=== PATIENT | male | born 1975 | race Caucasian/White ===

== ENCOUNTER 2017-01-18 10:27 | Day surgery (SDC) | payer OTHER ==
[2017-01-18] VITALS (16 sets, daily range): BP systolic 102–144; BP diastolic 48–94; PULSE 60–87; RESP 6–19; O2SAT 94–98
[~2017-01-18] VITALS: Ht 185.4 cm; Wt 98.5 kg
--- NOTE | 2017-01-18 07:56 | PCM.HPANE ---
Patient Data Surgeon Admitting Provider: Attending Provider:Errol Pugh MD Primary Care Physician:Kaushal Gomez MD Other Provider:[facility] Reason for Visit Right Recurrent Inguinal Hernia Ht/WT & BMI Height (Feet): 6 Height (Inches): 0 Weight (Kilograms): 98.883 Body Mass Index 29.00 Allergies Coded Allergies: No Known Allergies (Unverified , 01/16/17) Past Anesthesia History Anesthesia History: Denies:: Anesthesia Reactions, Malignant Hyperthermia Diabetes History Hx Diabetes?: No (HX OF IFG) MRSA MRSA: No Medications No Active Prescriptions or Reported Meds History History of ENT Problems?: Yes HEENT History: Denies:: Glaucoma (S/P PRK) Hx of Heart Problems?: No Cardiovascular History: Denies:: Heart Murmur Hypertension Hx of Respiratory Problem?: No Respiratory History: Denies:: Use of C-PAP Machine Hx Neurologic Problems?: No Hx of GI Problems?: Yes Gastrointestinal History: Positive for:: Liver Disease (HX ELEVATED LFT'S) Other GI Pertinent History: S/P RT INGUINAL HERNIA RPR RECURRENT RT INGUINAL HERNIA=CURRENT PROBLEM Hx of Problems?: No Male Hx: Denies:: Prostate Problems Scrotal Mass Testicular Surgery Skin History: Positive for:: History Skin Disorders? (S/P EXC MALIGNANT MELANOMA FROM CALF) Denies:: Pressure Ulcers Hx Musculoskeletal Problems?: Yes Musculoskeletal History: Positive for:: Musculoskeletal Trauma (S/P KNEE ARTHROSCOPY) Hx of Psycho/Social Problems?: No Hx Surgeries?: Yes (EXC MELANOMA,PRK,KNEE SCOPE,RT INGUINAL HERNIA RPR) Hx Any Other Health Problems?: Yes Other History: Positive for:: Cancer (MALIG. MELANOMA -CALF) Denies:: Endocrine Disease Hospitalization Thyroid Disease History Blood Transfusions: Denies:: Blood Transfusions Hx Diabetes: No (HX OF IFG) Hx Alcohol Use: NoHave You Smoked inLast 12 mo: No Stop/Bang S-Snoring: Do You Snore Loudly: No T-Tired: feel tired, fatigued: No O-Obsered: Observed not breath: No P-Blood Pressure: treated: No B- Body Mass Index > 35 kg/m2: No A- Age over 50: No N- Neck Large Circumference: No G- Gender Male: Yes THOMAS Total Score: 1 Risk Assessment Category Category 1A: Patient has history of documented sleep apnea, and HAS NOT received any narcotic, sedative or anesthesia administration during this stay. Category 1B: Patient has history of documented sleep apnea, and HAS received any narcotic , sedative or anesthesia administration during this stay Category 2: Patient has SUSPECTED Obstructive Sleep Apnea, and HAS received any narcotic , sedative or anesthesia administration during this stay. Category 3: Patient has SUSPECTED Obstructive Sleep Apnea and HAS NOT received narcotic, sedative or anesthesia administration during this stay. Category 4: Outpatient in Procedural Areas with known sleep apnea or who screen positive for High Risk via the STOP/BANG questionnaire. Plan Impression Patient chart reviewed, patient interviewed and anesthestic plan with risks, benefits, and alternatives discussed, and informed consent obtained. Tapan Medina MD Jan 18, 2017 07:56
[~2017-01-18 10:27] MED LIST: CeFAZolin Inj 2 GM in IV Premix 1 EACH IV ONE
[2017-01-18] MEDS ORDERED: Propofol 10,000 mCg/mL 20 mL Inj ONE (10:28)
[2017-01-18] MEDS ORDERED: Dexamethasone 4 mg/mL Inj ONE (10:28)
[2017-01-18] MEDS ORDERED: Rocuronium 10 mg/mL 5 mL Inj ONE (10:28)
[2017-01-18] MEDS ORDERED: Ondansetron 2 mg/mL 2 mL Inj ONE (10:28)
[2017-01-18] MEDS ORDERED: Ketamine 10 mg/mL 20 mL Inj ONE (10:28)
[2017-01-18] MEDS ORDERED: fentaNYL-PF 50 mCg/mL 2 mL Inj ONE (10:28)
[2017-01-18] MEDS: Lactated Ringer's 1,000 ML IV SCH ×2 (10:33→12:27)
[2017-01-18] MEDS ORDERED: Bupivacaine 0.5%/EPI 50 mL Inj INFILTRATE ONE (12:54)
[2017-01-18] MEDS ORDERED: fentaNYL-PF 50 mCg/mL 2 mL Inj IVPUSH PRN (13:10)
[2017-01-18] MEDS ORDERED: Lactated Ringer's 500 ML IV PRN (13:10)
[2017-01-18] MEDS ORDERED: Ondansetron 2 mg/mL 2 mL Inj IVPUSH PRN (13:10)
[2017-01-18] MEDS ORDERED: Phenylephrine 10,000 mCg/mL Inj IVPUSH PRN (13:10)
[2017-01-18] MEDS ORDERED: Lactated Ringer's 1,000 ML IV SCH (13:10)
[2017-01-18] MEDS ORDERED: MetoCLOpramide 5 mg/mL 2 mL Inj IVPUSH PRN (13:10)
[2017-01-18] MEDS ORDERED: EPHEDrine Sulfate 50 mg/mL Inj IVPUSH PRN (13:10)
[2017-01-18] MEDS ORDERED: Dexamethasone 4 mg/mL Inj IVPUSH PRN (13:10)
[2017-01-18] MEDS ORDERED: Lactated Ringer's 1,000 ML IV ONE (13:53)
[2017-01-18] MEDS ORDERED: HYDROcodone-APAP 5-325 mg Tablet PO PRN (14:20)
--- NOTE | 2017-01-18 14:23 | PCM.DISURG ---
Surgical Discharge Instruction Date of Service Jan 18, 2017 Dates of Hospitalization Date of Hospital Admission Providers Admitting Physician: Primary Care Physician: Kaushal Gomez MD Attending Physician: Errol Pugh MD Discharge Diagnosis Discharge Diagnosis Recurrent right inguinal hernia Diet Discharge Diet: No restrictions Activity Discharge Activity-General: No lifting >15 pounds for 2 weeks Dressing and Incisional Care Dressing Care: Allow Steri Stripes to fall off, Remove outer dressing after 24 hrs Hygiene: May shower after (24 hours) Follow Up Plan Follow Up Plan With Dr. Pugh in surgery clinic in 2-3 weeks Call your provider for: Fever, Discharge @ incision, pus discharge Errol Pugh MD Jan 18, 2017 14:23
--- NOTE | 2017-01-18 14:29 | PCM.SURGOP ---
Surgical Operative Report Date of Service: Jan 18, 2017 Pre Operative Diagnosis Recurrent right inguinal hernia Post Operative Diagnosis Same, direct Procedure: Laparoscopic repair of recurrent right inguinal hernia with mesh Surgeon and Statistics Manager: Surgeon: Errol Pugh MD Assistants: Rosalia Helms PA-C Indication for Procedure 41-year-old man who underwent a right inguinal hernia repair through an anterior approach at age 16. He believes the repair was performed with mesh. He then presented with 2 months of increasing pain in the right groin and a visible bulge which was reducible. He had an ultrasound which confirmed a reducible fat-containing hernia. After discussion of risks and benefits, he agreed to proceed with a laparoscopic right inguinal hernia repair with mesh. Findings: There was a small direct hernia defect on the right. There was no evidence of left inguinal hernia. Procedure Details After smooth induction of general anesthesia with LMA, he was placed in the supine position with both arms tucked. The abdomen was prepped and draped in wide sterile fashion. A procedural pause was performed according to the SCOAP checklist, and all were found to be in agreement. A curvilinear infraumbilical incision was made. Dissection was carried down with electrocautery through the subcutaneous tissue. The fascia was incised vertically and the peritoneal cavity was entered without difficulty. A 12 mm port was placed and pneumoperitoneum was established. Inspection revealed the recurrent right inguinal hernia, which was a small direct defect. There was visible suture from his prior repair, but no visible mesh. The left groin was intact. 5 mm ports were placed on the right and left side at the level of the umbilicus under visualization. A peritoneal flap was then raised on the right side. Preperitoneal dissection was carried down until the right superior pubic ramus and the pubic symphysis was skeletonized medially. The hernia sac and herniated preperitoneal fat was dissected out of the hernia space, which was a small direct defect. Again, mesh was not visualized. The inguinal ligament was skeletonized lateral to the cord structures. There was no evidence of indirect hernia. A repair was then performed using the large Bard 3-D Max mesh , right side. This was tacked to the pubic symphysis and Angel Luis's ligament with the Optifix device. One tack was placed on the anterior abdominal wall both medial and lateral to the inferior epigastric vessels, but no tacks were placed on the lateral aspect of the spermatic cord. The peritoneal flap was then closed using interrupted 0 silk sutures. Pneumoperitoneum was released after the 5 mm ports were removed under visualization. The fascia of the umbilical port site was closed with an 0 Vicryl suture in a [id number]. The skin incisions were closed using running 4-0 Monocryl subcuticular stitches. Steri-Strips and sterile dressings were applied. At the end of the case all needle and sponge counts were correct 2. The patient was awakened from anesthesia without difficulty, and taken to the recovery room in satisfactory condition, having tolerated the procedure well. Complications There were no periprocedural complications identified. Surgical Specimen Removed: No Specimen sent to Pathology: Not applicable Anesthetic Plan: GA Grafts, Implants: Implants-See Implant Record Output, Estimated Blood Loss: 10 Blood Administration during jameson: No Drains: None Catheters: None copies to: Kaushal Gomez MD, Joshua D MD Jan 18, 2017 14:29
[2017-01-18] MEDS: HYDROmorphone 1 mg/mL Inj IVPUSH PRN ×2 (14:34→15:04)
--- NOTE | 2017-01-18 16:37 | PCM.ANEP1 ---
Post Anesthesia Phase 1 PACU Phase 1 Assessment Date of Service: Jan 18, 2017 Vital Signs Vital Signs Date Time Temp Pulse Resp B/P Pulse Ox O2 Delivery O2 Flow Rate FiO2 01/18/17 16:01 36.6 61 16 128/83 97 Room Air 01/18/17 16:00 74 16 102/48 96 Room Air 01/18/17 15:40 62 10 123/76 95 Nasal Cannula 2 01/18/17 15:30 61 6 120/75 94 Nasal Cannula 2 01/18/17 15:15 64 9 131/65 94 Room Air 01/18/17 15:00 70 10 137/88 96 Room Air 01/18/17 14:50 70 12 133/91 95 Room Air 01/18/17 14:40 36.4 68 10 140/90 94 Room Air 01/18/17 14:35 73 16 140/92 95 Room Air 01/18/17 14:25 80 17 144/90 95 Room Air 01/18/17 14:20 80 19 137/87 95 Room Air 01/18/17 14:15 79 19 140/87 96 Room Air 01/18/17 14:10 36.5 87 19 135/88 98 Simple Mask 8 01/18/17 11:29 36.8 60 18 131/94 96 Room Air 01/18/17 11:05 36.8 60 18 131/94 96 Room Air Anesthetic Administered: GA Level of Alertness: Awake, talking MEREDITH's with Equal Strength: Yes Pain: No Nausea or Vomiting: No Oxygen Delivery: Simple Mask Lungs: Clear to Auscultation Dermatome Level: Full Sensation Tapan Medina MD Jan 18, 2017 16:37
--- NOTE | 2017-01-18 16:37 | PCM.ANEP2 ---
Post Anesthesia Evaluation ASA/CMS Post Anesthesia VS in Patient's Normal Range?: Yes Resp Stable; Airway Patent?: Yes CV Function & Hydration Stable: Yes Mental Status Recovered?: Yes Pain control Satisfactory?: Yes N/V Control Satisfactory?: Yes Tapan Medina MD Jan 18, 2017 16:37
== END 2017-01-18 23:59 | disposition home or self-care (01) ==
LOC: SAS 10:27
PROVIDERS: ATTEND Student in an Organized Health Care Education/Training Program
DX: K40.91 Unilateral inguinal hernia, without obstruction or gangrene, recurrent (principal); R79.89 Other specified abnormal findings of blood chemistry; R73.01 Impaired fasting glucose; Z85.820 Personal history of malignant melanoma of skin
CPT/HCPCS: 49651; C1781; J0690; J1100; J1170; J1885; J2250; J2405; J3010; J7120